=== PATIENT | male | born 1955 | race Caucasian/White ===

== ENCOUNTER 2022-05-19 08:50 | Outpatient (CLI) | payer SELFPAY ==
--- NOTE | 2022-05-19 08:45 | RT.EKG_ITS ---
APPROVED REPORT Exam: Resting ECG Reason for Exam: afib Patient Location: O HR:77 bpm ECG Measurements Heart Rate 77 AXIS IL [id number] P [id number] QRSd 100 QRS 55 QT 362 T 8 QTc 410 Conclusion Atrial fibrillation...V-rate 59- 94, irreg A-activity
== END 2022-05-19 08:51 | disposition home or self-care (01) ==
LOC: DI.CARD 08:51
PROVIDERS: PCP Physician Assistant Medical; Visit Provider Internal Medicine Cardiovascular Disease
DX: I48.91 Unspecified atrial fibrillation (principal)
CPT/HCPCS: 93010

== ENCOUNTER → 2022-05-19 09:06 | Outpatient (BNVA) | payer MEDICARE, SELFPAY | PROVIDERS: PCP Physician Assistant Medical; Visit Provider Internal Medicine Cardiovascular Disease | DX: R53.83 Other fatigue (principal); I48.91 Unspecified atrial fibrillation | CPT/HCPCS: 93005; 99203; 99204 ==

== ENCOUNTER 2022-06-17 01:20 | Outpatient (CLI) | payer MEDICARE, SELFPAY | END 2022-06-17 01:21 | disposition home or self-care (01) | LOC: LBO 01:20 | PROVIDERS: PCP Physician Assistant Medical; Visit Provider Internal Medicine Cardiovascular Disease ==

== ENCOUNTER 2022-06-18 15:18 | Outpatient (REF) | payer MEDICARE, SELFPAY ==
[2022-06-18 16:40] LABS: Source Nasal/Nares
[2022-06-18 20:30] LABS: COVID-19 PCR Negative (Negative)
== END 2022-06-18 15:19 | disposition home or self-care (01) ==
LOC: NCHCN 15:18
PROVIDERS: PCP Physician Assistant Medical; Visit Provider Internal Medicine Cardiovascular Disease
DX: Z20.822 Contact with and (suspected) exposure to COVID-19 (principal); Z01.818 Encounter for other preprocedural examination
CPT/HCPCS: 87635

== ENCOUNTER 2022-06-19 07:25 | Day surgery (SDC) | payer MEDICARE, SELFPAY ==
[2022-06-19] VITALS (8 sets, daily range): BP systolic 96–125; BP diastolic 69–90; PULSE 65–81; RESP 14–20; TEMP 36.5–36.8; O2SAT 97–100; BMI 34.1
--- NOTE | 2022-06-19 07:30 | RT.EKG_ITS ---
APPROVED REPORT Exam: Resting ECG Reason for Exam: Pre-op cardioversion Patient Location: O HR:87 bpm ECG Measurements Heart Rate 87 AXIS ND [id number] P [id number] QRSd 97 QRS 74 QT 363 T 25 QTc 437 Conclusion Atrial fibrillation...V-rate 61-109, irreg A-activity
[2022-06-19] MEDS: Normal Saline 1,000 ML 30 ML IV (08:06)
--- NOTE | 2022-06-19 08:06 | W.ANESPRE ---
General Info Date of Service Date Performed: 06/19/22 Height: 5 ft 10 in Weight: 107.8 kg Body Mass Index (BMI): 34.1 Surgical Procedure: Operation Date: 06/19/22 09:00 Proposed Procedure Side Surgeon p Cardioversion Ana Angela MD Meds Allergies and Home Medications Allergies Allergy/AdvReac Type Severity Reaction Status Date / Time atorvastatin AdvReac Intermediate sleepiness Verified 06/19/22 07:53 Home Medication Medication Instructions Recorded metoprolol succinate 25 mg 25 mg PO DAILY 04/22/22 tablet,extended release 24 hr apixaban 5 mg tablet (Eliquis) 5 mg PO BID 05/19/22 acetaminophen 650 mg 650 mg PO 06/19/22 tablet,extended release Current Visit Medications: Current Medications Generic Name Dose Route Start Last Admin Trade Name Freq PRN Reason Stop Dose Admin Sodium Chloride 1,000 mls @ 30 mls/hr 06/19/22 06:00 Saline 1000ml Bag IV [facility]ION [facility] Medical History Medical History Afib Diastasis recti Disorder of stomach Dyslipidemia HTN (hypertension) Post covid-19 condition, unspecified 2020 Snoring Weight gain Medical History Comments:: never had anything that requred to be in the hospital Tobacco Smoking/Tobacco Use Status: Never Alcohol Alcohol Intake: never Substance Use Substance use: Never Substance use type: does not use Vital Signs and Lab Results Vital Signs Most Recent Vital Signs in EMR: Most Recent Vital Signs Temp Pulse Resp BP Pulse Ox 36.8 C 81 17 148/104 H 99 06/19/22 07:41 06/19/22 07:41 06/19/22 07:41 06/19/22 07:41 06/19/22 07:41 Lab Results Blood Type / Crossmatch: No Data to Display Complete Blood Count: No Data to Display Complete Metabolic Panel: No Data to Display Liver Function Panel: No Data to Display Coagulation Panel: No Data to Display Cardiac Panel: No Data to Display Arterial Blood Gas: No Data to Display Venous Blood Gas: No Data to Display Pancreas Panel: No Data to Display Thyroid Panel: No Data to Display Infectious Disease: Coronavirus (COVID-19)(PCR) Negative (Negative) 06/18/22 14:45 Coronavirus 2019 Source Nasal/Nares 06/18/22 14:45 Blood Cultures: No Data to Display Toxicology Panel: No Data to Display Imaging and Studies Imaging and Studies Study information below may be from another EMR and interpreted by another provider. Please see original notes in EMR for more complete details. EKG Summary: Conclusion Atrial fibrillation...V-rate 59- 94, irreg A-activity Echocardiogram Summary: 04/04/22: EF 60%, Moderate MR Anesthesia Assessment and Plan Anesthesia History Personal History: No History of Anesthesia Complications Family History: No Family History of Anesthesia Complications Exercise Tolerance Exercise Tolerance: Metabolic Equivalents>4 Pertinent Negatives Pertinent Negatives: No Symptoms of GERD and No Major Pulmonary Symptoms or Complaints Cardiac & Pulmonary Exam Cardiac Exam: Normal S1/S2 Heart Sounds Pulmonary Exam: Clear Bilateral Breath Sounds Implantable Cardiac Device Does patient have a Pacemaker or an ICD?: No Airway Exam Known Difficult Airway: No Mallampati Class: 3 Mouth Opening: Normal (> 3cm) Thyromental Distance: Greater than 3 cm Neck Range of Motion: Full ROM Neck Circumference: Thick Teeth Condition: Loose or Chipped and Other (Plan for partial plate next week at dentist; nightly snoring--never has completed a sleep study for PARAS) ASA Classification ASA Score: ASA 3 Emergency Case?: No NPO Status NPO Status: NPO Clears >2 hours, Solids >8 hours Anesthesia Plan Resuscitation Status: Full Code Anesthesia Technique: General Anesthesia Airway Planned: Natural Airway Monitors Used: Standard Monitors
--- NOTE | 2022-06-19 09:00 | RT.EKG_ITS ---
APPROVED REPORT Exam: Resting ECG Reason for Exam: Post-op Cardioversion Patient Location: O HR:64 bpm ECG Measurements Heart Rate 64 AXIS HI 185 P 56 QRSd 98 QRS 67 QT 406 T 42 QTc 420 Conclusion Sinus rhythm...normal P axis, V-rate 60- 99
--- NOTE | 2022-06-19 09:00 | W.PM.DSUDISC ---
Discharge Plan Disposition Patient Disposition: HOME Condition: Good Discharge Details Attending Provider: Ana Angela Primary Care Provider: Lewis Ugalde Home Meds and New Rx's Prescriptions: No Action Eliquis 5 mg tablet 5 mg PO BID metoprolol succinate 25 mg tablet extended release 24 hr 25 mg PO DAILY acetaminophen [Tylenol Arthritis] 650 mg Tablet Extended Release 650 mg PO Discharge Instructions Stand Alone Forms: DSU Cardioversion Post-Op Activity:: Activity as Tolerated Diet:: As Tolerated Discharge Orders Discharge Orders: Discharge Order (Routine); Ordered 06/19/22 Ordered By: Ana Angela
--- NOTE | 2022-06-19 09:10 | W.CARDVER ---
Date of service: 06/19/22 Time of Service: 09:10 Cardioversion DATE OF PROCEDURE: 06/19/22 PRE-OP DIAGNOSES: atrial fibrillation POST-OP DIAGNOSES: same Indications: Symptomatic atrial fibrillation, manifested as exercise intolerance Procedure Description: Synchronized cardioversion Patient was sedated under the direction of anesthesia. He had anterior and posterior ZOLL pads placed. He was connected to the automated defibrillator. This was placed in the synchronized mode. When adequate sedation was achieved he had a total of 3 synchronized shocks at 150, 200, 200 W seconds. After the third shock sinus rhythm was restored. He was taken to recovery area where when fully awake he will be discharged to home. Post procedure electrocardiogram will be obtained. Patient tolerated the procedure well
--- NOTE | 2022-06-19 10:08 | W.ANESPOSTOP ---
Postoperative Evaluation Date, Time and Location Date Performed: 06/19/22 Time Performed: 10:08 Patient Location: Day Surgery Unit Vital Signs Most Recent Imported Vital Signs: Most Recent Vital Signs Temp Pulse Resp BP Pulse Ox 36.5 C 66 16 121/87 98 06/19/22 09:50 06/19/22 09:50 06/19/22 09:50 06/19/22 09:50 06/19/22 09:50 Pain Score Most Recent Pain Score: Most Recent Pain Score Pain Level 0 06/19/22 09:50 Assessment Mental Status: Awake (Alert & Oriented to Patient Baseline) Airway and Respiratory Function: Patent airway with normal (patient baseline) respiratory exam Cardiovascular Function: Hemodynamically Stable Hydration Status: Adequately Hydrated Nausea & Vomiting: No Nausea or Vomiting Pain: Pt. Denies Any Pain Peripheral Nerve Block: Patient did not receive a nerve block
== END 2022-06-19 10:24 | disposition home or self-care (01) ==
PROVIDERS: PCP Physician Assistant Medical; Visit Provider Internal Medicine Cardiovascular Disease
PROC: 5A2204Z Restoration of Cardiac Rhythm, Single (ICD-10-PCS; CPT 92960; principal; 2022-06-19 09:00)
DX: I48.91 Unspecified atrial fibrillation (principal); I10 Essential (primary) hypertension; E78.5 Hyperlipidemia, unspecified
CPT/HCPCS: 92960; 93005; 93010; 99024; J2704

== ENCOUNTER → 2022-07-03 09:42 | Outpatient (BNVA) | payer MEDICARE, SELFPAY | PROVIDERS: PCP Physician Assistant Medical; Referring Provider Physician Assistant Medical; Visit Provider Internal Medicine Cardiovascular Disease | DX: I48.91 Unspecified atrial fibrillation (principal); I10 Essential (primary) hypertension | CPT/HCPCS: 93005; 99214 ==

== ENCOUNTER 2022-07-03 09:51 | Outpatient (CLI) | payer MEDICARE, SELFPAY ==
--- NOTE | 2022-07-03 09:45 | RT.EKG_ITS ---
APPROVED REPORT Exam: Resting ECG Reason for Exam: Post Cardioversion Patient Location: O HR:89 bpm ECG Measurements Heart Rate 89 AXIS CO [id number] P [id number] QRSd 101 QRS 64 QT 344 T 26 QTc 419 Conclusion Atrial fibrillation...V-rate 70- 97, irreg A-activity
== END 2022-07-03 09:52 | disposition home or self-care (01) ==
LOC: DI.CARD 09:51
PROVIDERS: PCP Physician Assistant Medical; Visit Provider Internal Medicine Cardiovascular Disease
DX: I48.91 Unspecified atrial fibrillation (principal); R94.31 Abnormal electrocardiogram [ECG] [EKG]
CPT/HCPCS: 93010

== ENCOUNTER → 2022-07-10 00:14 | Outpatient (CLI) | payer MEDICARE, SELFPAY ==
--- NOTE | 2022-07-10 07:15 | DI.NM_ITS ---
APPROVED REPORT Exam: Exercise Treadmill Patient Location: Out-Patient Room/Bed: Stress Nurse: Lola Mcfarland RN Ordering Provider:CHUY CAIN, Contact Number: [phone] BMI: 33.32 Baseline Rhythm: Atrial Fibrillation Indications: Atrial fibrillation. Medical History Medical History: AFIB. HTN. Dyspipidemia. Post Covid. Cardiac Medications: Metoprolol succinate. Abixiban. Eliquis. Allergies: Atorvastatin Cardiac Risk Factors: Family hx. HTN. HLD. Obesity. Previous Cardiac Procedures: Cardioversion (unsuccessful) Pretest Chest Pain Characteristics: None Exercise History: Indeterminate Physical Disabilities: None Lung Sounds: Clear to auscultation Heart Sounds: Irregular Stress Test Details Test: Exercise stress testing was performed using a Alli protocol. Nuclear Acquisition: Rest Tc-99m/Stress Tc-99m 1 day Rest Isotope: Tc-99m Sestamibi. Dose: 11.5 Date: 07/10/2022 Injection Time: 0900 Stress Isotope: Tc-99m Sestamibi. Dose: 37.0 Date: 07/10/2022 Injection Time: 1032 HR Resting HR Supine: 86 bpm Max Heart Rate (APMHR): 154.158654 bpm Resting HR Standin bpm Target HR (85% APMHR): 130.796820 bpm Max HR Achieved: 174 bpm % of APMHR: 112.99 Recovery HR: 96 bpm HR response to stress: Accelerated HR response to stress Comment: Pt took his Metoprolol Succinate this am. BP Resting BP Supine: 138/88 mmHg Resting BP Standin/82 mmHg Max BP: 188/94 mmHg Recovery BP: 132/98 mmHg BP response to stress: Normal blood pressure response to stress. ECG Resting ECG: Atrial Fibrillation Ectopy: None Stress ECG: Atrial Fibrillation ST Change: No significant ST segment changes noted Arrhythmia: Ventricular couplet x1 Recovery ECG: Atrial Fibrillation Recovery ST Change: No significant ST segment changes noted Recovery Arrhythmia: None Clinical Reason for Termination: Target HR Achieved Stress Symptoms: Dyspnea Exercise duration: 2 min00 sec Highest Stage Reached: Stage 1: 1.7 mph at 10% grade. Exercise capacity: 4.62 METs Scale: Sedentary Angina Score: None Rate Pressure Product: [id number] Stress ECG Conclusion 1. Resting electrocardiogram showed atrial fibrillation 2. Patient exercised briefly on the treadmill and completed a workload of 4.62 METS, limited by short ness of breath 3. Accelerated heart rate response to exercise. The patient achieved greater than 100% of predicted heart rate for age 4. The electrocardiographic portion of the test showed no evidence of myocardial ischemia 5. See MPI report Stress Test Summary STAGE Time (mins) Speed (mph) Grade (%) HR BP SpO2 SYMPTOMS METS Supine 86 138/88 Mild SOB at rest Standing 88 142/82 1 3 1.7 10 174 Mod SOB 4.5 1 min recovery 130 188/94 Mild SOB. 3 min recovery 105 148/100 6 min recovery 96 132/98 MPI Conclusion Myocardial perfusion is normal without evidence of ischemia or prior infarction EF is 45%, wall motion is normal Radiologist Interpretation Radiologist Interpretation by: Anders Guerrero MD Interpretation Date/Time: 07/10/2022 21:27:48
== END ==
PROVIDERS: PCP Physician Assistant Medical; Visit Provider Internal Medicine Cardiovascular Disease
DX: I48.91 Unspecified atrial fibrillation (principal)
CPT/HCPCS: 78452; 93016; 93018; 93017

== ENCOUNTER 2022-07-28 16:31 | Outpatient (REF) | payer MEDICARE, SELFPAY ==
[2022-07-28 13:37] LABS: Source Nasal/Nares
[2022-07-28 15:28] LABS: COVID-19 PCR Negative (Negative)
== END 2022-07-28 16:32 | disposition home or self-care (01) ==
LOC: LBN 16:31
PROVIDERS: PCP Physician Assistant Medical; Visit Provider Internal Medicine Cardiovascular Disease
DX: Z11.52 Encounter for screening for COVID-19 (principal); Z20.822 Contact with and (suspected) exposure to COVID-19
CPT/HCPCS: 87635

== ENCOUNTER 2022-07-29 07:36 | Day surgery (SDC) | payer MEDICARE, SELFPAY ==
[2022-07-29 07:39] VITALS: BP 125/81; PULSE 53; RESP 22; TEMP 36.2; O2SAT 99
--- NOTE | 2022-07-29 08:45 | RT.EKG_ITS ---
APPROVED REPORT Exam: Resting ECG Reason for Exam: Pre-op EKG Patient Location: O HR:51 bpm ECG Measurements Heart Rate 51 AXIS MN 178 P 38 QRSd 108 QRS 61 QT 444 T 45 QTc 407 Conclusion Sinus bradycardia...rate< 60 Normal Electrocardiogram
== END 2022-07-29 07:37 | disposition home or self-care (01) ==
LOC: SUR 07:37
PROVIDERS: PCP Physician Assistant Medical; Visit Provider Internal Medicine Cardiovascular Disease
DX: R06.02 Shortness of breath (principal); Z53.9 Procedure and treatment not carried out, unspecified reason
CPT/HCPCS: 93005; 93010

== ENCOUNTER 2022-08-07 08:28 | Outpatient (CLI) | payer MEDICARE, SELFPAY ==
--- NOTE | 2022-08-07 08:15 | RT.EKG_ITS ---
APPROVED REPORT Exam: Resting ECG Reason for Exam: afic Patient Location: O HR:86 bpm ECG Measurements Heart Rate 86 AXIS NH [id number] P [id number] QRSd 112 QRS -56 QT 380 T -23 QTc 455 Conclusion Atrial flutter...A-rate 230 Borderline IVCD with LAD...QRSd >112mS, axis(-90,-30)
== END 2022-08-07 08:29 | disposition home or self-care (01) ==
LOC: DI.CARD 08:29
PROVIDERS: PCP Physician Assistant Medical; Visit Provider Internal Medicine Cardiovascular Disease
DX: I48.91 Unspecified atrial fibrillation (principal); R94.31 Abnormal electrocardiogram [ECG] [EKG]
CPT/HCPCS: 93010

== ENCOUNTER → 2022-08-07 09:29 | Outpatient (BNVA) | payer MEDICARE, SELFPAY | PROVIDERS: PCP Physician Assistant Medical; Referring Provider Physician Assistant Medical; Visit Provider Internal Medicine Cardiovascular Disease | DX: I48.91 Unspecified atrial fibrillation (principal); I10 Essential (primary) hypertension | CPT/HCPCS: 93005; 99214 ==

== ENCOUNTER → 2022-08-19 10:06 | Outpatient (BNVA) | payer MEDICARE, SELFPAY | PROVIDERS: PCP Physician Assistant Medical; Referring Provider Physician Assistant Medical; Visit Provider Internal Medicine Cardiovascular Disease | DX: R06.09 Other forms of dyspnea (principal); I48.91 Unspecified atrial fibrillation; I10 Essential (primary) hypertension | CPT/HCPCS: 99214 ==

== ENCOUNTER → 2022-10-17 00:55 | Outpatient (CLI) | payer MEDICARE, SELFPAY ==
--- NOTE | 2022-10-17 11:20 | DI.US_ITS ---
APPROVED REPORT EXAM: Comprehensive 2D, Doppler, and color-flow Echocardiogram Patient Location: Out-Patient Ladderman: Lizette Whiting RDCS (AE) Indications: STAT exam ordered from [facility] [place] Dyspnea on exertion Other Information Study Quality: Adequate Conclusion Normal left ventricular wall thickness and chamber size. Estimated ejection fraction is 55%. Wall m otion is normal Normal right ventricular size and systolic function The left atrium is mildly dilated. The right atrium is normal in size Aortic valve is trileaflet and mildly sclerotic with trace regurgitation Mitral annular calcification. Mildly thickened mitral leaflets. Mild to moderate mitral regurgitati on Normal tricuspid valve with trace regurgitation. Right ventricular systolic pressure could not be es timated Dilated ascending aorta measuring 3.73 cm Wall motion Left Ventricle The left ventricle is normal size. The left ventricular systolic function is normal. The left ventric ular ejection fraction is within the normal range. There is normal left ventricular wall thickness. T here is normal LV segmental wall motion. There is no ventricular septal defect visualized. LVEF is 55 %. Right Ventricle The right ventricle is normal size. The right ventricular systolic function is normal. Atria Left atrium is mildly dilated. The right atrium size is normal. The interatrial septum is intact with no evidence for an atrial septal defect. Aortic Valve The Aortic valve is mildly sclerotic. Aortic valve is trileaflet. There is no aortic valvular stenosi s. Trace aortic regurgitation. Mitral Valve There is mitral annular calcification. Mildly thickened mitral leaflets No evidence of mitral valve s tenosis. Mild to moderate mitral regurgitation. Tricuspid Valve The tricuspid valve is normal in structure. There is no tricuspid valve stenosis. Trace tricuspid reg urgitation. Unable to assess PA pressure. Pulmonic Valve The pulmonary valve is normal in structure. There is no pulmonic valvular stenosis. Trace pulmonic re gurgitation. Great Vessels The aortic root is normal in size. The ascending aorta is mildly dilated.3.73 cm Aortic arch is yajaira l in caliber. IVC is normal in size and collapses >50% with inspiration. Pericardium There is no pericardial effusion. 2D Dimensions IVSD d PLAX 0.99 cm M: 0.6-1.2 LV Vol A2C d MOD 131.1 mL LVPW d PLAX 0.99 cm M: 0.6 - 1.2 LV Vol A4C d MOD 133.3 mL LVID d PLAX 5.25 cm M: 4.2 - 5.8 LA vol/ BSA A2C s A-L 28.1 mL/m2 LVDs 3.55 cm M: 2.5 - 4.0 LA vol/ BSA A4C s A-L 36.9 mL/m2 Ao Root d 3.01 cm M: 3.1 - 3.7 LA Vol/ BSA Biplane s A-L 34.0 mL/m2 RA Area A4C 15.68 cm2 LA Area A4C s MOD 25.69 cm2 RA Vol/ BSA A4C s A-L 17.5 mL/m2 LA Area A2C s MOD 21.21 cm2 Ao Asc Diam d 3.73 cm M: 2.6 - 3.4 LV EF A4C MOD 55.2 % LV EF Teichholz 59.3 % LV EF A2C MOD 55.3 % LVEF (Carrillo's) 55.47 % M: 52 - 72 LV EF Biplane MOD 55.5 % LV Volume 95.68 mL M: 62 - 150 SV 73.66 mL LV Volume Index 42.33 mL/m2 M: 34 - 74 SV Index 32.49 mL/m2 LV Vol Biplane MOD 132.8 mL FS 31.65 % M-Mode TAPSE 2.85 cm (M/F) >1.7 LV Diastology MV E' medial 0.083 (>0.07 m/s) E/A Ratio 1.5 LV E/e MED 11.45 (<14) MV E Vmax 0.95 (0.4-1.3 m/s) MV E' lateral 0.163 (>0.1 m/s) MV A Vmax 0.65 (0.4-1.3 m/s) LV E/e LAT 5.85 (<14) MV E/A Ratio 1.46 MV E/E' medial 11.47 MV E/E' lateral 5.85 Aortic Valve LVOT Area 3.04 cm2 AoV Area Vmax 2.28 cm2 LVOT Vmax 1.30 m/s AoV Area/ BSA (Vmax) 1.00 cm2/m2 LVOT Mean Jonnathan. 0.92 m/s DYANA Mean Jonnathan. 2.23 cm2 LVOT Peak Grad 6.8 mmHg DYANA Mean Jonnathan. Index 0.99 cm2/m2 LVOT Mean Grad 3.8 mmHg AR DT 3421 msec LVOT VTI 0.311 m AR PHT 992 msec LVOT Diam s 1.95 cm AoV Vmax 1.74 m/s Velocity Ratio 0.74 AoV Mean Jonnathan. 1.25 m/s AoV Peak Grad 12.1 mmHg LVOT SV 94.56 mL AoV Mean Grad 6.8 mmHg AoV VTI 0.380 m AoV Area VTI 2.49 cm2 AoV Area/ BSA (VTI) 1.10 cm/m2 Mitral Valve MV DT 243 (160-240 msec) MR Vmax 4.95 m/s MV PHT 71 msec MR VTI 1.732 m MV Area PHT 3.12 cm2 MR Peak Grad 98.2 mmHg MV VTI 0.437 m MR Mean Grad 69.2 mmHg MV Area VTI 2.16 (4.0-6.0 cm2) Pulmonary Valve PV Vmax 1.00 (0.5-1.5 m/s) RVOT Peak Gr. 2.83 mmHg PV Peak Grad 4.0 mmHg RVOT Mean Gr. 1.50 mmHg PV Mean Grad 2.3 mmHg RVOT VTI 0.211 m PV VTI 0.244 m RVOT Vmax 0.84 m/s
== END ==
PROVIDERS: PCP Physician Assistant Medical; Visit Provider Internal Medicine Cardiovascular Disease
DX: R06.09 Other forms of dyspnea (principal)
CPT/HCPCS: 93306

== ENCOUNTER → 2022-11-13 01:58 | Outpatient (CLI) | payer MEDICARE, SELFPAY ==
--- NOTE | 2022-11-13 09:00 | DI.CT_ITS ---
Exam(s) CT CHEST WO EXAM: CT CHEST WO CLINICAL HISTORY: SOB, R06.02, H/O AMIODARONE USE, ? PNEUMONITIS. TECHNIQUE: Imaging protocol: Axial computed tomography images were obtained and coronal and sagittal reformatted images were created and reviewed. COMPARISON: DX XR CHEST PA AND LATERAL (GENERIC) from 10/15/2022 FINDINGS: Tracheobronchial tree: Patent where visualized. Pulmonary parenchyma: No consolidation or dominant measurable mass. No architectural distortion. Mediastinum and Sparkle: No dominant adenopathy or fluid collection. The esophagus is unremarkable. Thyroid gland: Unremarkable. Pleura: No effusion or pneumothorax. Heart: The heart is not dilated. Coronary artery calcifications are present. No pericardial effusion . Aorta: Thoracic aorta non-dilated. Upper abdomen: Unremarkable. Lymph nodes: Within normal limits. Soft tissues: Unremarkable. Bones:Within normal limits for the patient's age. IMPRESSION: No acute abnormality. No infiltrates or interstitial disease. RADIATION DOSE DELIVERED: 702.17mGy.cm Total DLP 702.17mGy.cm Total DLP DATA REPOSITORY: All CT scans at this facility are submitted to the National Radiology Data Registry (NRDR) Dose Index Registry (DIR) with the [employer] (ACR). RADIATION OPTIMIZATION: All CT scans at this facility use at least one of these dose optimization te chniques: automated exposure control; mA and/or kV adjustment per patient size (includes targeted exa ms where dose is matched to clinical indication); or iterative reconstruction.
== END ==
PROVIDERS: PCP Physician Assistant Medical; Visit Provider Family Medicine
DX: R06.02 Shortness of breath (principal)
CPT/HCPCS: 71250

== ENCOUNTER → 2022-11-18 09:53 | Outpatient (BNVA) | payer MEDICARE, SELFPAY | PROVIDERS: PCP Physician Assistant Medical; Referring Provider Physician Assistant Medical; Visit Provider Internal Medicine Cardiovascular Disease | DX: I48.91 Unspecified atrial fibrillation (principal); I10 Essential (primary) hypertension; R06.02 Shortness of breath; E66.9 Obesity, unspecified; Z79.01 Long term (current) use of anticoagulants | CPT/HCPCS: 99214 ==

== ENCOUNTER 2022-11-24 01:21 | Outpatient (CLI) | payer MEDICARE, SELFPAY ==
[2022-11-24] MEDS: Albuterol HFA 18 GM 200 PUFF INH IH (14:15)
[2022-11-24] MEDS: Inhaler, Assist Device 1 EACH MC (14:15)
--- NOTE | 2022-12-02 11:42 | W.PFT ---
Date of service: 11/24/22 Time of Service: 12:54 Pulmonary Function Test Result Requesting Provider Ana Angela Indications: HOWELL Interpretation Spirometry: There is no airflow limitation. There is no bronchodilator response. The FVC is low. Lung Volumes: Mild restrictive lung disease. Diffusion Capacity: Normal diffusion. Airway Pressure: Normal airways resistance. Impression Mild restrictive lung disease with a normal diffusion. This could represent early interstitial lung disease, mechanical restriction from obesity or neuromuscular weakness. Recommend muscle pressure PFT testing and/or chest imaging to further evaluate. Clinical Correlation therefore is recommended.
== END 2022-11-24 01:22 | disposition home or self-care (01) ==
LOC: RT 01:21
PROVIDERS: PCP Physician Assistant Medical; Visit Provider Internal Medicine Cardiovascular Disease
DX: R94.2 Abnormal results of pulmonary function studies (principal); R06.09 Other forms of dyspnea; R06.02 Shortness of breath; R06.2 Wheezing
CPT/HCPCS: 94060; 94726; 94729

== ENCOUNTER 2023-02-13 02:26 | Outpatient (CLI) | payer MEDICARE, SELFPAY ==
[2023-02-13] MEDS: Albuterol HFA 18 GM 200 PUFF INH IH (11:50)
[2023-02-13] MEDS: Inhaler, Assist Device 1 EACH MC (11:51)
--- NOTE | 2023-02-18 13:08 | W.PFT ---
Date of service: 02/13/23 Time of Service: 10:07 Pulmonary Function Test Result Requesting Provider Danilohene Indications: Restrictive lung disease Interpretation Spirometry: No airflow limitation. Methacholine not performed since FEV1% less than 70%. No bronchodilator response. Normal MIP and MEP. FVC is low. Impression No obstruction. FVC is low. Normal muscle pressures. Clinical Correlation therefore is recommended.
== END 2023-02-13 02:27 | disposition home or self-care (01) ==
LOC: RT 02:26
PROVIDERS: PCP Physician Assistant Medical; Visit Provider Student in an Organized Health Care Education/Training Program
DX: R06.02 Shortness of breath (principal)
CPT/HCPCS: 94060

== ENCOUNTER 2023-05-04 15:01 | Outpatient (REF) | payer MEDICARE, SELFPAY ==
[2023-05-04 11:18] LABS: Vitamin D 25 Total 14.4 ng/mL (30-100)
[2023-05-04 11:21] LABS: TSH (W/Ref FT4) 1.22 uIU/mL (0.36-3.74); Vitamin B12 280 pg/mL (193-986)
[2023-05-05 10:27] LABS: Lyme Ab w Rflx to Lyme Confirm Negative (Negative)
[2023-05-06 19:46] LABS: Anaplasma phagocytophilum Negative (Negative); B. miyamotoi PCR Negative (Negative); Babesia divergens/MO-1 Negative (Negative); Babesia duncani Negative (Negative); Babesia microti Negative (Negative); Ehrlichia chaffeensis Negative (Negative); Ehrlichia ewingii/canis Negative (Negative); Ehrlichia muris eauclairensis Negative (Negative)
== END 2023-05-04 15:02 | disposition home or self-care (01) ==
LOC: NCHCN 15:01
PROVIDERS: PCP Physician Assistant Medical; Visit Provider Physician Assistant Surgical
DX: R53.83 Other fatigue (principal); E55.9 Vitamin D deficiency, unspecified; R06.09 Other forms of dyspnea; I10 Essential (primary) hypertension; E66.8 Other obesity; J98.4 Other disorders of lung
CPT/HCPCS: 82306; 87798; 82607; 84443; 86618

== ENCOUNTER → 2023-11-12 11:01 | Outpatient (BNVA) | payer MEDICARE, SELFPAY | PROVIDERS: PCP Physician Assistant Medical; Referring Provider Physician Assistant Medical; Visit Provider Physician Assistant Surgical | DX: R06.02 Shortness of breath (principal); J98.4 Other disorders of lung | CPT/HCPCS: 99214 ==

== ENCOUNTER → 2024-12-21 08:05 | Outpatient (BNVA) | payer MEDICARE, SELFPAY | PROVIDERS: PCP Physician Assistant Medical; Referring Provider Physician Assistant Medical; Visit Provider Registered Nurse | DX: I48.91 Unspecified atrial fibrillation (principal); I10 Essential (primary) hypertension | CPT/HCPCS: 99214 ==

== ENCOUNTER 2025-02-27 10:38 | Outpatient (CLI) | payer MEDICARE, SELFPAY ==
--- NOTE | 2025-02-27 10:30 | RT.EKG_ITS ---
APPROVED REPORT Exam: Resting ECG Reason for Exam: afib Patient Location: O HR:61 bpm ECG Measurements Heart Rate 61 AXIS [place] 152 P 26 QRSd 105 QRS 46 QT 397 T 13 QTc 400 Conclusion Sinus rhythm...normal P axis, V-rate 50- 99 Normal Electrocardiogram
== END 2025-02-27 10:39 | disposition home or self-care (01) ==
LOC: DI.CARD 10:39
PROVIDERS: PCP Physician Assistant Medical; Visit Provider Registered Nurse
DX: I48.91 Unspecified atrial fibrillation (principal)
CPT/HCPCS: 93010

== ENCOUNTER → 2025-02-27 12:44 | Outpatient (BNVA) | payer MEDICARE, SELFPAY | PROVIDERS: PCP Physician Assistant Medical; Referring Provider Physician Assistant Medical; Visit Provider Registered Nurse | DX: I48.91 Unspecified atrial fibrillation (principal); R06.83 Snoring | CPT/HCPCS: 93005; 99214 ==

== ENCOUNTER 2025-03-02 10:15 | Outpatient (CLI) | payer MEDICARE, SELFPAY | END 2025-03-02 10:16 | disposition home or self-care (01) | LOC: CARDOPNVT 10:15 | PROVIDERS: PCP Physician Assistant Medical; Visit Provider Registered Nurse | DX: I48.91 Unspecified atrial fibrillation (principal) | CPT/HCPCS: 93270 ==

== ENCOUNTER 2025-03-28 06:51 | Outpatient (CLI) | payer MEDICARE, SELFPAY ==
--- NOTE | 2025-03-28 09:07 | W.CARDEVENT ---
Date of service: 03/28/25 Time of Service: 09:07 Cardiac Event Recorder Referring Provider:: Marleny Stephens Indications:: Paroxysmal atrial fibrillation Cardiac Event Note: This is a cardiac event monitor. Patient was monitored for 11 days and 16 hours. Rhythm throughout was sinus. Average heart rate overall was 67. Minimum was 49, maximum 131 There were no significant ventricular dysrhythmias. There was no atrial fibrillation, no high-grade AV block, no pauses greater than 3 seconds. There are no apparent symptoms
== END 2025-03-28 06:52 | disposition home or self-care (01) ==
LOC: CARDOPNVT 06:51
PROVIDERS: PCP Physician Assistant Medical; Visit Provider Internal Medicine Cardiovascular Disease
DX: I48.0 Paroxysmal atrial fibrillation (principal)
CPT/HCPCS: 93272

== ENCOUNTER 2025-06-09 00:15 | Outpatient (CLI) | payer MEDICARE, SELFPAY ==
--- NOTE | 2025-06-09 06:45 | DI.US_ITS ---
APPROVED REPORT EXAM: Comprehensive 2D, Doppler, and color-flow Echocardiogram Patient Location: Out-Patient Commutator V Ring Assembler: Lizette Whiting RDCS (AE) Indications: Atrial fibrillation, dyspnea, HTN Other Information Study Quality: Adequate Conclusion Normal left ventricular wall thickness and chamber size. Ejection fraction 60 to 65%. Wall motion is normal Normal right ventricular size and function Both atria are normal in size Aortic valve is mildly sclerotic and trileaflet with trace regurgitation Mitral annular calcification, mild mitral regurgitation Estimated right ventricular systolic pressure is 29 mmHg Ascending aorta measures 3.73 cm Wall motion Left Ventricle The left ventricle is normal size. The left ventricular systolic function is normal. The left ventricular ejection fraction is within the normal range. There is normal left ventricular wall thickness. There is normal LV segmental wall motion. There is no ventricular septal defect visualized. LVEF is 60-65%. Right Ventricle The right ventricle is normal size. The right ventricular systolic function is normal. Atria The left atrium size is normal. The right atrium size is normal. The interatrial septum is intact with no evidence for an atrial septal defect. Aortic Valve The aortic valve is mildly sclerotic Aortic valve is trileaflet. There is no aortic valvular stenosis. Trace aortic regurgitation. Mitral Valve Mild mitral annular calcification. No evidence of mitral valve stenosis. Mild mitral regurgitation. Tricuspid Valve The tricuspid valve is normal in structure. There is no tricuspid valve stenosis. Trace to mild tricuspid regurgitation. The RVSP is 29.3 mmHg. Pulmonic Valve The pulmonary valve is normal in structure. There is no pulmonic valvular stenosis. Trace pulmonic regurgitation. Great Vessels The aortic root is normal in size. The ascending aorta is mildly dilated. Aortic arch is not well visualized. IVC is normal in size and collapses >50% with inspiration. Pericardium There is no pericardial effusion. 2D Dimensions IVSD d PLAX 0.90 cm M: 0.6-1.2 Ao Root d 3.12 cm M: 3.1 - 3.7 LVPW d PLAX 0.90 cm M: 0.6 - 1.2 Ao Asc Diam d 3.75 cm M: 2.6 - 3.4 LVID d PLAX 4.72 cm M: 4.2 - 5.8 LVDs 3.03 cm M: 2.5 - 4.0 LV EF Teichholz 65.2 % FS 35.74 % LV EDV (Teich) 103.4 mL LV ESV (Teich) 36.0 mL M-Mode TAPSE 3.29 cm (M/F) >1.7 Auto EF LV EDV A4C 141.0 mL LV EDV A2C 138.2 mL LV EDV BP 144.7 mL LV ESV A4C 56.5 mL LV ESV A2C 54.4 mL LV ESV BP 55.8 mL LVEF(%) A4C 60.0 % LVEF(%) A2C 60.6 % LVEF(%) BP 61.4 % LV SV A4C 84.5 ml LV SV A2C 83.8 ml LV SV BP 88.9 ml LV CO A4C 4.7 L/min LV CO A2C 5.0 L/min LV CO BP 4.8 L/min HR A4C 55.38 BPM HR A2C 59.61 BPM LV EDV Index (BP) LA Volume LA Length A4C 5.3 cm LA Length A2C 6.0 cm LA Area A4C s 19.86 cm2 LA Area A2C s 22.90 cm2 LA Vol A4C A-L 63.03 mL LA Vol A2C A-L 74.40 mL LA Vol Biplane A-L 72.7 mL LA Vol/BSA A4C A-L LA Vol/BSA A2C A-L LA Vol/BSA BP A-L 34.8 mL/m2 LA Vol A4C MOD 57.8 mL LA Vol A2C MOD 70.1 mL LA Vol BP MOD 67.4 mL RA Volume RA Area A4C 11.7 cm2 RA ESV A4C (A-L) 26.0mL RA Vol/BSA A4C A-L RA Length A4C 4.5 cm RA ESV A4C (MOD) 25.0mL LV Diastology MV E' medial 0.080 (>0.07 m/s) MV E Vmax 0.88 (0.4-1.3 m/s) MV E/E' MED 11.07 (<14) MV A Vmax 0.80 (0.4-1.3 m/s) MV E' lateral 0.102 (>0.1 m/s) E/A Ratio 1.1 MV E/E' LAT 8.65 (<14) MV E' Average 0.091 m/s MV E/E'(average) 9.71 Aortic Valve AoV Vmax 1.71 m/s LVOT Vmax 1.09 m/s AoV Peak Grad 38.8 mmHg LVOT Peak Grad 4.8 mmHg AoV Area (Vmax) 1.82 cm2 LVOT VTI 0.263 m AoV VTI 0.405 m LVOT Mean Grad 3.1 mmHg AoV Mean Jonnathan. 1.13 m/s LVOT SV 75.10 mL AoV Mean Grad 5.9 mmHg LVOT Diam s 1.90 cm AoV Area (VTI) 1.86 cm2 AV Regurg Peak Gr. 11.73 mmHg Velocity Ratio 0.64 AR Decel [place] 0.8m/sec2 AR DT 5139 msec AR PHT 1490 msec AR Vmax 4.06 m/s Mitral Valve MV DT 225 (160-240 msec) MV Vmax TIPS 0.84 m/s MV Mean Grad 1.2 (<2mmHg) MV VTI 0.371 m Pulmonary Valve PV Vmax 0.85 (0.5-1.5 m/s) RVOT Vmax 0.69 m/s PV Peak Grad 2.9 mmHg RVOT Peak Gr. 1.9 mmHg PV Mean Jonnathan 0.58 m/s RVOT VTI 0.170 m PV Mean Grad 1.6 mmHg RVOT Mean Gr. 1.2 mmHg Tricuspid Valve RA Pressure 3.00 mmHg TR Vmax 2.56 m/s TV S' 0.15 m/s TR Peak Grad 26.2 mmHg RVSP (TR) 29.3 mmHg
== END 2025-06-09 00:35 ==
LOC: DI 00:15
PROVIDERS: PCP Physician Assistant Medical; Visit Provider Internal Medicine Cardiovascular Disease
DX: I48.91 Unspecified atrial fibrillation (principal)
CPT/HCPCS: 93306

== ENCOUNTER → 2025-06-21 09:27 | Outpatient (BNVA) | payer MEDICARE, SELFPAY | PROVIDERS: PCP Physician Assistant Medical; Referring Provider Physician Assistant Medical; Visit Provider Registered Nurse | DX: I48.91 Unspecified atrial fibrillation (principal); Z79.01 Long term (current) use of anticoagulants | CPT/HCPCS: 99214 ==